=== PATIENT | male | born 1970 | race African-American/Black ===

== ENCOUNTER 2016-10-08 12:19 | Emergency (ER) | payer OTHER ==
[~2016-10-08] VITALS: Ht 180.3 cm; Wt 100.0 kg
[2016-10-08 12:52] VITALS: BP 121/77
== END 2016-10-08 12:55 | disposition home or self-care (01) ==
LOC: EMS 12:21
DX: R44.2 Other hallucinations (principal); H57.8 Other specified disorders of eye and adnexa; F12.90 Cannabis use, unspecified, uncomplicated
CPT/HCPCS: 99281